=== PATIENT | male | born 1995 | race African-American/Black ===

== ENCOUNTER 2019-03-23 14:49 | Emergency (ER) | payer MEDICAID ==
[~2019-03-23] VITALS: Ht 190.5 cm; Wt 92.7 kg
[2019-03-23 15:04] VITALS: BP 129/87
--- NOTE | 2019-03-23 15:34 | NUR ---
DC EDUCATION PROVIDED, PT DEMONSTRATES UNDERSTANDING. PT AMBULATED STEADILY TO DC WITH RN
== END 2019-03-23 15:35 | disposition home or self-care (01) ==
LOC: ED 15:17
DX: S61.012D Laceration without foreign body of left thumb without damage to nail, subsequent encounter (principal); X58.XXXD Exposure to other specified factors, subsequent encounter
CPT/HCPCS: 99281